=== PATIENT | female | born 1990 | race Caucasian/White ===

== ENCOUNTER 2016-11-22 20:14 | Inpatient (IN) | payer BC ==
[2016-11-22] MEDS ORDERED: RINGERS SOLUTION,LACTATED 1,000 ML IV ONE (22:18)
[2016-11-22] MEDS ORDERED: LIDOCAINE HCL 50 ML VIAL PERI PRN (22:18)
[2016-11-22] MEDS ORDERED: DEXTROSE 5%-LACTATED RINGERS 1,000 ML IV PRN (22:18)
[2016-11-22] MEDS ORDERED: OXYTOCIN/DEXTROSE 5%-WATER 30 UNITS/500 ML BAG IV ONE (22:18)
[2016-11-22] MEDS ORDERED: BUTORPHANOL TARTRATE 2 MG/ML VIAL IV PRN (22:18)
[2016-11-22] MEDS ORDERED: CALCIUM CARBONATE 500 MG TAB.CHEW PO PRN (22:23)
[2016-11-23] MEDS ORDERED: BUPIVACAINE HCL/0.9 % NACL/PF 250 ML EP PRN (05:25)
[2016-11-23] MEDS ORDERED: ONDANSETRON HCL/PF 2 MG/ML VIAL IV PRN (05:25)
[2016-11-23] MEDS ORDERED: NALOXONE HCL 1 MG/1 ML SYRG IV PRN (05:25)
[2016-11-23] MEDS ORDERED: BUPIVACAINE HCL/PF 30 ML VIAL EP ONE (05:25)
--- NOTE | 2016-11-23 06:10 | OR ---
Anesthesia Procedure Note - Anesthesia Procedure Note Date of Service: 11/23/16 Narrative: Vital Signs - Last Taken Temp 36 C L 11/23/16 06:07 Pulse 104 H 11/23/16 06:07 Resp 18 11/23/16 06:07 BP 138/86 11/23/16 06:07 Pulse Ox 100 11/23/16 06:07 11/23/16 06:09 ANESTHESIA PROCEDURE NOTE Date of Procedure: 11/23/2016. Time of procedure: 0545. Performed by: Red Fisher CRNA Cloth Printing Back Tender: None. Preprocedure diagnosis: Active labor. Post procedure diagnosis: Same. Procedure: Insertion of labor epidural. Indications: The patient is a 26 -year-old female in active labor requesting labor epidural for pain management. Findings: See below. Details of the procedure: The patient was placed in a sitting position. DuraPrep as well as Betadine swabs 3 was applied to the patient's back. Patient was then draped in a sterile fashion. Lidocaine 1% was infiltrated to the skin and subcutaneous tissues at the level of the L3 4 interspace. The epidural space was identified using a 18-gauge Tuohy needle with loss-of- resistance technique. Epidural catheter was inserted to a depth of 11 centimeters at skin. Negative test dose was elicited using 3 mL of 1.5% preservative-free lidocaine plus epinephrine 1 200,000. The epidural catheter was then taped and secured in place. A loading dose of 8 mL of 0.25% preservative-free bupivacaine was administered to the epidural catheter after negative aspiration for blood and CSF. EBL: Minimal. Fluids: N/A. Specimen: N/A. Post procedure condition: The patient tolerated the procedure well. No complications were noted. Thank you for this consultation. Red Fisher CRNA
[2016-11-23] MEDS ORDERED: GLYCERIN/WITCH HAZEL LEAF 40 APPL BOX TP PRN (11:34)
[2016-11-23] MEDS ORDERED: SENNOSIDES 8.6 MG TABLET PO PRN (11:34)
[2016-11-23] MEDS ORDERED: BISACODYL 10 MG SUPP.RECT RC PRN (11:34)
[2016-11-23] MEDS ORDERED: HYDROCORTISONE 30 APPL TUBE TP PRN (11:34)
[2016-11-23] MEDS ORDERED: BENZOCAINE/MENTHOL 81 SPRAY CAN TP PRN (11:34)
[2016-11-23] MEDS ORDERED: oxyCODONE HCL/ACETAMINOPHEN 1 TAB TABLET PO PRN (11:34)
[2016-11-23] MEDS ORDERED: OXYTOCIN/DEXTROSE 5%-WATER 30 UNITS/500 ML BAG IV ONE (11:34)
--- NOTE | 2016-11-23 11:37 | OR ---
Operative Report - Dictated Report Narrative: Spontaneous vaginal delivery of viable female in REJI position at 1008 on 11/23/2016 with Apgars 8 and 9, weighing 3042 g. Nuchal cord 3 reduced with delivery of head. Cord clamping delayed 1 minute. Placenta delivered complete, intact, with three vessel cord. AROM was done just prior to delivery - noting light meconium stained fluid. Estimated blood loss: less than 50 ml Lacerations: First-degree left labial laceration repaired with 4-0 Vicryl Rapide. History for MU Definition: * The number of deliveries resulting in a live the patient experienced prior to current hospitalization * The previous delivery of live twins or any live multiple gestation is considered one live event. *If primagravida or nulliparous is documented select zero for the number of previous live births. Live Events: 0
[2016-11-23] MEDS: oxyCODONE HCL/ACETAMINOPHEN 1 TAB TABLET PO PRN ×4 (12:34→21:56)
[2016-11-23] MEDS: IBUPROFEN 800 MG TABLET PO PRN ×2 (12:34→18:56)
[2016-11-23] MEDS: MAGNESIUM OXIDE 400 MG TABLET PO SCH (20:51)
[2016-11-23] MEDS: DOCUSATE SODIUM 100 MG CAPSULE PO SCH (20:52)
[2016-11-24] MEDS: oxyCODONE HCL/ACETAMINOPHEN 1 TAB TABLET PO PRN ×7 (01:03→22:44)
[2016-11-24] MEDS: IBUPROFEN 800 MG TABLET PO PRN ×4 (01:50→19:37)
[2016-11-24] MEDS: DOCUSATE SODIUM 100 MG CAPSULE PO SCH ×3 (07:33→20:22)
[2016-11-24] MEDS: MAGNESIUM OXIDE 400 MG TABLET PO SCH ×2 (08:48→20:22)
--- NOTE | 2016-11-24 09:23 | PN ---
Subjective - Date and Time Seen Date: 11/24/16 Time: 09:22 Objective - Vitals Vitals: Last Vital Signs Temp 36.0 C L 11/24/16 07:45 Pulse 88 11/24/16 07:45 Resp 20 11/24/16 07:45 BP 133/85 11/24/16 07:45 Pulse Ox 98 11/24/16 07:45 Patient denies complaints. Lochia wnl Abdomen - soft, nontender Uterus - firm, at umbilicus - 1 No calf tenderness Impression: day #1 - s/p spontaneous vaginal delivery. Plan: Continue routine care Cauti Physician Documentation - Urinary Catheter Management Urethral ([facility]sey) Date of Insertion: 11/23/16 Time of Insertion: 06:45 Date of Removal: 11/23/16 Time of Removal: 09:45
[2016-11-24] MEDS ORDERED: hydrOXYzine PAMOATE 25 MG CAPSULE PO PRN (12:31)
[2016-11-25] MEDS: oxyCODONE HCL/ACETAMINOPHEN 1 TAB TABLET PO PRN ×2 (01:51→07:34)
[2016-11-25] MEDS: IBUPROFEN 800 MG TABLET PO PRN ×2 (01:58→07:34)
[2016-11-25] MEDS: MAGNESIUM OXIDE 400 MG TABLET PO SCH ×2 (07:33→14:11)
[2016-11-25] MEDS: DOCUSATE SODIUM 100 MG CAPSULE PO SCH ×2 (07:33→14:11)
[2016-11-25 07:52] VITALS: BP 121/76
== END 2016-11-25 12:55 | disposition home or self-care (01) | DRG 775 ==
LOC: OBCLINIC 20:14 → OB 22:11
PROVIDERS: ADMIT Obstetrics & Gynecology; ATTEND Obstetrics & Gynecology
PROC: 10E0XZZ Delivery of Products of Conception, External Approach (ICD-10-PCS; principal; 2016-11-22)
PROC: 0HQ9XZZ Repair Perineum Skin, External Approach (ICD-10-PCS; 2016-11-22)
PROC: 4A1HXCZ Monitoring of Products of Conception, Cardiac Rate, External Approach (ICD-10-PCS; 2016-11-22)
PROC: 10907ZC Drainage of Amniotic Fluid, Therapeutic from Products of Conception, Via Natural or Artificial Opening (ICD-10-PCS; 2016-11-22)
PROC: 3E0S3CZ (ICD-10-PCS; 2016-11-22)
DX: O70.0 First degree perineal laceration during delivery (principal); O69.81X0 Labor and delivery complicated by cord around neck, without compression, not applicable or unspecified; O77.0 Labor and delivery complicated by meconium in amniotic fluid; J45.20 Mild intermittent asthma, uncomplicated; Z37.0 Single live birth; Z3A.41 41 weeks gestation of pregnancy

== ENCOUNTER 2018-11-02 00:06 | Inpatient (IN) ==
[~2018-11-02 00:06] MED LIST: OXYTOCIN/DEXTROSE 5%-WATER 30 UNITS/500 ML BAG IV ONE
[2018-11-02 01:34] LABS: Cocaine Ur Negative (NEGATIVE); Urine Barbiturate Negative (NEGATIVE); Urine Benzodiazepines Negative (NEGATIVE); Urine Opiates Negative (NEGATIVE); Urine PCP Negative (NEGATIVE); Urine THC Negative (NEGATIVE)
[2018-11-02] MEDS ORDERED: CALCIUM CARBONATE 500 MG TAB.CHEW PO PRN (02:19)
[2018-11-02] MEDS ORDERED: ACETAMINOPHEN 325 MG TABLET PO ONE (03:47)
[2018-11-02] MEDS: RINGER'S SOLUTION,LACTATED 1,000 ML IV ONE ×2 (07:44→08:49)
[2018-11-02] MEDS ORDERED: NALOXONE HCL 1 MG/1 ML SYRG IV PRN (07:47)
[2018-11-02] MEDS ORDERED: BUPIVACAINE HCL/0.9 % NACL/PF 250 ML EP PRN (07:47)
[2018-11-02] MEDS ORDERED: fentaNYL CITRATE/PF 50 MCG/ML AMPUL IT SCH (08:00)
[2018-11-02] MEDS ORDERED: LIDOCAINE HCL/EPINEPHRINE 20 ML VIAL ONE (08:26)
--- NOTE | 2018-11-02 09:21 | PN ---
Progess Note - Interim Date: 11/02/18 Time: 09:17 Narrative: 11/02/18 09:17 Patient comfortable with epidural Vital signs stable. Pitocin at 9 mu/min. FHT: 140 baseline, reassuring Contractions q 2-3 min Cervix: 4/50/-2, AROM-clear Impression: Intrauterine at 39 4/7 weeks induction of labor due to living far from the hospital Plan: Continue present plan
--- NOTE | 2018-11-02 09:39 | ANES ---
Anesthesia Pre Procedure Eval Vitals/Labs: Last Vital Signs Temp 36.8 C 11/02/18 02:00 Pulse 87 11/02/18 02:00 Resp 18 11/02/18 02:00 BP 128/72 11/02/18 02:00 Pulse Ox 98 11/02/18 02:00 HOME MEDICATIONS [id number] 400 mcg-om3 35 mg-dha 25 mg-epa 5 mg-fish oil chewable tablet 2 tab PO DAILY tab 04/14/18 [Last Taken 06/08/18] ranitidine 150 mg tablet 150 mg PO BID 07/02/18 [Last Taken Unknown] magnesium 200 mg tablet 800 mg PO BID tab 08/31/18 [Last Taken Unknown] breast pump See Dose Instructions .ROUTE .MEDSUPPLY #1 ea 10/08/18 [Last Taken Unknown] Allergies/Adverse Reactions: Allergies Allergy/AdvReac Type Severity Reaction Status Date / Time latex Allergy rash, Verified 11/02/18 00:18 blisters ondansetron [From Zofran] AdvReac headaches, Verified 11/02/18 00:18 vomitting - Planned Procedure Planned Procedure: ELECTIVE INDUCTION 39 WEEKS, 4 DAYS Medication List Reviewed:: Yes Allergies Verified: Yes Medical History (Last Reviewed 11/02/18 @ 09:38 by Romario Hernandez CRNA) Anxiety Onset Date: Unknown Dysmenorrhea Onset Date: 07/14/02 Have always had painful periods, was put on BC in 2003 to help with heavy bleeding and cramping. Ovarian cyst Onset Date: 11/04/11 Multiple cysts surrounding rt ovary. Cysts burst and was put through progesterone challenge at that time for 10 days Panic disorder Onset Date: 09/25/09 Atenalol was prescribed prn which usually was taken 3-5 times/month and hasn't been used since trying to get . Asthma Onset Date: 08/25/92 albuterol inh used prn 5m before heavy exercise or when feeling chest tightness., no hospitalizations Post-dates Onset Date: 11/22/16 Surgical History (Last Reviewed 11/02/18 @ 09:38 by Romario Hernandez CRNA) No pertinent past surgical history Family History (Last Reviewed 11/02/18 @ 09:38 by Romario Hernandez CRNA) Mother Depression IBS (irritable bowel syndrome) Crohn's disease Father Bladder cancer Brother Asthma Grandfather Asthma Maternal Aunt Breast cancer Lupus Grandmother CVA (cerebral vascular accident) maternal Diabetes Kidney disease Grandmother No problems noted. Other Cancer - Family Anesthesia History Family History:: no untoward family reactions to anesthesia - Airway/Neck/Teeth Within Normal Limits:: Yes Teeth Condition: intact Neck Exam: full range of motion Mallampatti Score: 2 Thyromental (T-M) distance: > 6 cm Mandibulo Hyoid distance: > 3 cm - Respiratory Respiratory Physical: lungs clear Sleep Apnea currently treated: No Sleep Apnea by current assessment: No - Cardiovascular Tolerate Activity: Good Heart Sounds: S1 & S2, Regular - Anesthesia Assessment and Plan ASA Class: PS, II, E Anesthesia Type Plan: Epidural Planned difficult intubation/equipment available: No
--- NOTE | 2018-11-02 09:40 | ANES ---
Post Anesthesia Discharge - Transfer of Care Transfer of Care handoff given to nurse: Yes - Anesthesia Post Op Note Anesthesia Post Op Note: Care transferred to OB RN
--- NOTE | 2018-11-02 09:40 | ANES ---
Post Anesthesia Assessment - Vital Signs Vitals: Last Vital Signs Temp 36.8 C 11/02/18 02:00 Pulse 87 11/02/18 02:00 Resp 18 11/02/18 02:00 BP 128/72 11/02/18 02:00 Pulse Ox 98 11/02/18 02:00 Airway Patency: Normal - Mental Status Level Of Consciousness: Awake - Pain Level Pain Score: 2 - N/V Assessment Nausea/Vomiting Presence: None Dehydration:: No
--- NOTE | 2018-11-02 12:10 | ANES ---
Anesthesia Procedure Note Procedure Note: ANESTHESIA PROCEDURE NOTE Date of Procedure: 11/02/2018 Time of procedure: . Performed by: Dionte Hernandez CRNA Charging Plug Placer: None. Preprocedure diagnosis: Active labor. Post procedure diagnosis: Same. Procedure: Insertion of labor epidural. Indications: The patient is a 28-year-old multigravid female in active labor requesting labor epidural for pain management. Findings: See below. Details of the procedure: The patient was placed in a sitting position. Back was prepped with DuraPrep. Patient was then draped in a sterile fashion. Lidocaine 1% was infiltrated to the skin and subcutaneous tissues at the level of the L3 4 interspace. The epidural space was identified using a 18-gauge Tuohy needle with [id number] technique. 20 mcg fentanyl was given intrathecally using a 27 ga. spinal needle. Epidural catheter was inserted without difficulty. Negative test dose was elicited using 5 mL of 1.5% preservative-free lidocaine plus epinephrine 1 200,000. The epidural catheter was then taped and secured in place. EBL: Minimal. Fluids: N/A. Specimen: N/A. Post procedure condition: The patient tolerated the procedure well. No complications were noted. Thank you for this consultation. Santiago CRNA
[2018-11-02] MEDS ORDERED: HYDROCORTISONE 30 APPL TUBE TP PRN (16:18)
[2018-11-02] MEDS ORDERED: SENNOSIDES 8.6 MG TABLET PO PRN (16:18)
[2018-11-02] MEDS ORDERED: OXYTOCIN/DEXTROSE 5%-WATER 30 UNITS/500 ML BAG IV ONE (16:18)
[2018-11-02] MEDS ORDERED: BISACODYL 10 MG SUPP.RECT RC PRN (16:18)
[2018-11-02] MEDS ORDERED: BENZOCAINE/MENTHOL 81 SPRAY CAN TP PRN (16:18)
[2018-11-02] MEDS ORDERED: GLYCERIN/WITCH HAZEL LEAF 40 APPL BOX TP PRN (16:18)
[2018-11-02] MEDS ORDERED: oxyCODONE HCL/ACETAMINOPHEN 1 TAB TABLET PO PRN (16:18)
--- NOTE | 2018-11-02 16:22 | OR ---
Operative Report - Dictated Report Narrative: Spontaneous vaginal delivery of a vigorously crying viable female at 1556 on 11/02/2018 with Apgars 9 and 9, weighing 3406 g in REJI position. Cord clamping delayed approximately 1 minute Placenta delivered complete, intact, with three vessel cord Estimated blood loss: less than 50 ml Anesthesia: epidural Lacerations: Cllitoral Sheppard and right labial abrasion-no repair needed. History for Definition: * The number of deliveries resulting in a live the patient experienced prior to current hospitalization * The previous delivery of live twins or any live multiple gestation is considered one live event. *If primagravida or nulliparous is documented select zero for the number of previous live births. Live Events: 1
[2018-11-02] MEDS: IBUPROFEN 800 MG TABLET PO PRN (19:03)
[2018-11-02] MEDS: DOCUSATE SODIUM 100 MG CAPSULE PO SCH (21:06)
[2018-11-03] MEDS: IBUPROFEN 800 MG TABLET PO PRN ×3 (01:28→17:31)
--- NOTE | 2018-11-03 05:12 | PN ---
Subjective - Date and Time Seen Date: 11/03/18 Time: 05:12 Objective - Vitals Vitals: Last Vital Signs Temp 36.8 C 11/03/18 00:46 Pulse 91 11/03/18 00:46 Resp 18 11/03/18 00:46 BP 124/74 11/03/18 00:46 Pulse Ox 97 11/03/18 00:46 Complains of intense postdelivery contractions Lochia wnl Abdomen - soft, nontender Uterus - firm, at umbilicus - 1 No calf tenderness Impression: day #1 - s/p spontaneous vaginal delivery. Plan: Continue routine care Cauti Physician Documentation - Urinary Catheter Management Urethral ([facility]sey) Date of Insertion: 11/02/18 Time of Insertion: 09:30 Date of Removal: 11/02/18 Time of Removal: 15:23
[2018-11-03] MEDS: MAGNESIUM OXIDE 400 MG TABLET PO SCH (08:43)
[2018-11-03] MEDS: PRENATAL VITS96/IRON FUM/FOLIC 1 TAB TABLET PO SCH (08:43)
[2018-11-03] MEDS: DOCUSATE SODIUM 100 MG CAPSULE PO SCH ×2 (08:43→20:31)
[2018-11-03] MEDS: oxyCODONE HCL/ACETAMINOPHEN 1 TAB TABLET PO PRN ×4 (09:42→20:31)
[2018-11-04] MEDS: IBUPROFEN 800 MG TABLET PO PRN ×2 (06:38→12:37)
[2018-11-04 07:24] VITALS: BP 126/86
[2018-11-04] MEDS: DOCUSATE SODIUM 100 MG CAPSULE PO SCH (09:47)
[2018-11-04] MEDS: PRENATAL VITS96/IRON FUM/FOLIC 1 TAB TABLET PO SCH (09:47)
[2018-11-04] MEDS: MAGNESIUM OXIDE 400 MG TABLET PO SCH (09:47)
--- NOTE | 2018-11-04 14:21 | PN ---
Subjective - Date and Time Seen Date: 11/04/18 Time: 14:21 Objective - Vitals Vitals: Last Vital Signs Temp 36.4 C 11/04/18 07:00 Pulse 75 11/04/18 07:00 Resp 16 11/04/18 07:00 BP 126/86 11/04/18 07:00 Pulse Ox 98 11/04/18 07:00 Patient denies complaints. Breast-feeding well Lochia wnl Abdomen - soft, nontender Uterus - firm, at umbilicus - 2 No calf tenderness Impression: day #2 - s/p spontaneous vaginal delivery. Plan: Routine discharge instructions Cauti Physician Documentation - Urinary Catheter Management Urethral (Massey) Date of Insertion: 11/02/18 Time of Insertion: 09:30 Date of Removal: 11/02/18 Time of Removal: 15:23
--- NOTE | 2018-11-10 09:17 | HP ---
Chief Complaint - Chief Complaint Date of Service: 11/02/18 Time of Service: 06:00 Chief Complaint: induction of labor History of Present Illness: 28 yo at 39 4/7 weeks presents for elective induction of labor due to a dvanced dilation and lives far from hospital. This complicated by: Asthma -exercise induced. Migraines - magnesium 800mg/d Anxiety/panic d/o - stable off meds RH positive Rubella immune GBS Negative Medical History (Last Reviewed 11/10/18 @ 09:13 by Mikie Smith DO) Anxiety Onset Date: Unknown Dysmenorrhea Onset Date: 07/14/02 Have always had painful periods, was put on BC in 2003 to help with heavy bleeding and cramping. Ovarian cyst Onset Date: 11/04/11 Multiple cysts surrounding rt ovary. Cysts burst and was put through progesterone challenge at that time for 10 days Panic disorder Onset Date: 09/25/09 Atenalol was prescribed prn which usually was taken 3-5 times/month and hasn't been used since trying to get . Asthma Onset Date: 08/25/92 albuterol inh used prn 5m before heavy exercise or when feeling chest tightness., no hospitalizations Post-dates Onset Date: 11/22/16 Surgical History: Surgical History (Last Reviewed 11/10/18 @ 09:13 by Mikie Smith DO) No pertinent past surgical history Family History: Family History (Last Reviewed 11/10/18 @ 09:13 by Mikie Smith DO) Mother Depression IBS (irritable bowel syndrome) Crohn's disease Father Bladder cancer Brother Asthma Grandfather Asthma Maternal Aunt Breast cancer Lupus Grandmother CVA (cerebral vascular accident) maternal Diabetes Kidney disease Grandmother No problems noted. Other Cancer Social History: Preferred Language Taiwanese Do you have any caodaism or No cultural preference? Smoking Status Never smoker (Last Updated 10/26/18 @ 10:11 by Mikie Smith DO) No Social History Section defined Review Of Systems (GEN) - Review of Systems Generalized/Overall Review: Present: No Symptoms Reported EENTM: Present: No Symptoms Reported Cardiac: Present: No Symptoms Reported Abdominal: Present: No Symptoms Reported Genitourinary: Present: No Symptoms Reported Musculoskeletal: Present: No Symptoms Reported Neurological: Present: No Symptoms Reported Skin: Present: No Symptoms Reported Endocrine: Present: No Symptoms Reported Immunizations: IMMUNIZATION HX Immunizations Up to Date Yes History of Influenza Vaccine Yes Hx Pneumococcal Vaccination No Allergies/Adverse Reactions: Allergies Allergy/AdvReac Type Severity Reaction Status Date / Time latex Allergy rash, Verified 11/02/18 00:18 blisters ondansetron [From Zofran] AdvReac headaches, Verified 11/02/18 00:18 vomitting Home Medications: HOME MEDICATIONS [id number] 400 mcg-om3 35 mg-dha 25 mg-epa 5 mg-fish oil chewable tablet 2 tab PO DAILY tab 04/14/18 [Last Taken 06/08/18] magnesium 200 mg tablet 800 mg PO BID tab 08/31/18 [Last Taken Unknown] breast pump See Dose Instructions .ROUTE .MEDSUPPLY #1 ea 10/08/18 [Last Taken Unknown] Ibuprofen [Motrin] 200 - 800 mg PO Q6H PRN #100 tab 11/04/18 [Last Taken Unknown] Exam - Exam Vital Signs: Vital Signs - Last Taken Temp 36.4 C 11/04/18 07:00 Pulse 75 11/04/18 07:00 Resp 16 11/04/18 07:00 BP 126/86 11/04/18 07:00 Pulse Ox 98 11/04/18 07:00 Constitutional: Present: Alert, Oriented x3, Cooperative, No distress ENT Exam: Present: hearing grossly normal Breasts: Present: Exam deferred Respiratory: Present: lungs clear, no respiratory distress Cardiovascular/Chest: Present: normal peripheral pulses, regular rate, rhythm Abdomen: Present: Normal bowel sounds, soft, nontender, no rebound tenderness, other - gravid /Rectal: Present: Other - cervix 2/50/-2 Extremity: Present: non-tender, no pedal edema, no calf tenderness Skin Exam: Present: normal color, warm/dry, no cyanosis Neurologic: Present: alert, normal mood/affect, oriented x 3. Absent: dizzy/light-headedness Appearance: Present: appropriate appearance, appropriate insight Eye contact: Present: cooperative, good eye contact Thoughts: Present: normal thought pattern Diagnostic Studies: Laboratory Results Urine Opiates Screen Negative (NEGATIVE) 11/02/18 00:00 Barbiturate Screen Negative (NEGATIVE) 11/02/18 00:00 Ur Phencyclidine Scrn Negative (NEGATIVE) 11/02/18 00:00 Urine Amphetamine Negative (NEGATIVE) 11/02/18 00:00 U Benzodiazepines Scrn Negative (NEGATIVE) 11/02/18 00:00 Urine Cocaine Screen Negative (NEGATIVE) 11/02/18 00:00 Urine Marijuana (THC) Negative (NEGATIVE) 11/02/18 00:00 Assessment/Plan - Assessment/Plan (1) Encounter for induction of labor Assessment: Admit for pitocn induction of labor. Epidural PRN. Problem: Acute (2) Asthma Problem: Chronic Qualifiers: Asthma severity: mild Asthma persistence: intermittent Asthma complication type: uncomplicated Qualified Code(s): J45.20 - Mild intermittent asthma, uncomplicated (3) Anxiety Problem: Chronic
== END 2018-11-04 13:40 | disposition home or self-care (01) | DRG 807 ==
LOC: OB 00:06
PROVIDERS: ADMIT Obstetrics & Gynecology; ATTEND Obstetrics & Gynecology
CPT/HCPCS: 59025; 80307

== ENCOUNTER 2020-01-20 14:36 | Inpatient (IN) ==
[2020-01-20] MEDS ORDERED: DEXTROSE 5%-LACTATED RINGERS 1,000 ML IV PRN (14:47)
[2020-01-20] MEDS ORDERED: RINGER'S SOLUTION,LACTATED 1,000 ML IV ONE (14:47)
[2020-01-20] MEDS ORDERED: OXYTOCIN/DEXTROSE 5%-WATER 30 UNITS/500 ML BAG IV ONE (14:47)
[2020-01-20] MEDS ORDERED: NALOXONE HCL 1 MG/1 ML SYRG IV PRN (17:48)
[2020-01-20] MEDS ORDERED: BUPIVACAINE HCL/0.9 % NACL/PF 250 ML EP PRN (17:48)
[2020-01-20] MEDS ORDERED: ONDANSETRON HCL/PF 2 MG/ML VIAL IV PRN (17:48)
[2020-01-20] MEDS ORDERED: fentaNYL CITRATE/PF 50 MCG/ML AMPUL IT SCH (18:00)
--- NOTE | 2020-01-20 18:26 | HP ---
Chief Complaint - Chief Complaint Date of Service: 01/20/20 Time of Service: 18:20 Chief Complaint: elective induction of labor History of Present Illness: 29 yo at 39 4/7 weeks admitted for elective induction of labor due to being multigravid living >1 hour from hospital. This complicated by anemia, asthma, and anxiety. Rh positive Rubella immune GBS negative Medical History (Last Reviewed 01/20/20 @ 18:21 by Mikie Smith DO) Anemia Onset Date: 10/25/19 w/ Anxiety Onset Date: Unknown Dysmenorrhea Onset Date: 07/14/02 Have always had painful periods, was put on BC in 2003 to help with heavy bleeding and cramping. Ovarian cyst Onset Date: 11/04/11 Multiple cysts surrounding rt ovary. Cysts burst and was put through progesterone challenge at that time for 10 days Panic disorder Onset Date: 09/25/09 Atenalol was prescribed prn which usually was taken 3-5 times/month and hasn't been used since trying to get . Asthma Onset Date: 08/25/92 albuterol inh used prn 5m before heavy exercise or when feeling chest tightness., no hospitalizations Post-dates Onset Date: 11/22/16 Surgical History: Surgical History (Last Reviewed 01/20/20 @ 18:21 by Mikie Smith DO) No pertinent past surgical history Family History: Family History (Last Reviewed 01/20/20 @ 18:22 by Mikie Smith DO) Mother Depression IBS (irritable bowel syndrome) Crohn's disease Father Bladder cancer Brother Asthma Grandfather Asthma Maternal Aunt Breast cancer Lupus Grandmother CVA (cerebral vascular accident) maternal Diabetes Kidney disease Grandmother No problems noted. Daughter Cataracts, bilateral congenital Other Cancer Social History: (Last Reviewed 01/20/20 @ 18:22 by Mikie Smith DO) Social History: adopted: No detention: No Marital status: household members: spouse, children number of children: 2 current occupational status: employed current occupation: collections assistant current occupational exposures/hazards: No Highest education level completed: Associate degree: academi Sexually Active: Yes Service: No Tobacco: Smoking Status: Never smoker Alcohol: alcohol intake: former Substance Use: substance use type: does not use Dietary Habits: caffeine: No Exercise: frequency: does not exercise Katja/Synagogue: agree to transfusion: Yes Personal Safety: victim of physical abuse: No victim of emotional abuse: No victim of sexual abuse: No Review Of Systems (GEN) - Review of Systems Generalized/Overall Review: Present: No Symptoms Reported EENTM: Present: No Symptoms Reported Respiratory: Present: No Symptoms Reported Cardiac: Present: No Symptoms Reported Abdominal: Present: No Symptoms Reported Genitourinary: Present: No Symptoms Reported Musculoskeletal: Present: No Symptoms Reported Neurological: Present: No Symptoms Reported Skin: Present: No Symptoms Reported Endocrine: Present: No Symptoms Reported Immunizations: IMMUNIZATION HX Immunizations Up to Date Yes History of Influenza Vaccine Yes Hx Pneumococcal Vaccination No Allergies/Adverse Reactions: Allergies Allergy/AdvReac Type Severity Reaction Status Date / Time latex Allergy rash, Verified 01/18/20 09:11 blisters ondansetron [From Zofran] AdvReac headaches, Verified 01/18/20 09:11 vomitting Home Medications: HOME MEDICATIONS famotidine 20 mg tablet 20 mg PO DAILY #30 tab 12/14/19 [Last Taken Unknown] Vits96/Iron Fum/Folic [ S] 1 tab PO DAILY 01/20/20 [Last Taken Unknown] Exam - Exam Vital Signs: Vital Signs - Last Taken Temp 36.2 C 01/20/20 15:00 Pulse 79 01/20/20 15:00 Resp 18 01/20/20 15:00 BP 133/81 01/20/20 15:00 Pulse Ox 99 01/20/20 15:00 Constitutional: Present: Alert, Oriented x3, Cooperative, No distress ENT Exam: Present: hearing grossly normal Neck: Absent: thyromegaly Respiratory: Present: lungs clear, no respiratory distress Cardiovascular/Chest: Present: regular rate, rhythm, no edema Abdomen: Present: soft, no rebound tenderness, other - gravid /Rectal: Present: Other - Cervix 2-3/50/-2 Extremity: Present: no pedal edema, no calf tenderness Skin Exam: Present: normal color, warm/dry, no cyanosis Neurologic: Present: alert, normal mood/affect, oriented x 3 Appearance: Present: appropriate appearance, appropriate insight Eye contact: Present: cooperative, good eye contact Thoughts: Present: normal thought pattern Assessment/Plan - Assessment/Plan (1) Encounter for induction of labor Assessment: Admit for pitocin induction of labor. Epidural PRN. Problem: Acute (2) Asthma Problem: Chronic Qualifiers: Asthma severity: mild Asthma persistence: intermittent Asthma complication type: uncomplicated Qualified Code(s): J45.20 - Mild intermittent asthma, uncomplicated (3) Anxiety Problem: Chronic (4) Anemia Problem: Acute Qualifiers: Anemia type: iron deficiency Iron deficiency anemia type: inadequate dietary iron intake Qualified Code(s): D50.8 - Other iron deficiency anemias
--- NOTE | 2020-01-20 18:36 | ANES ---
Anesthesia Pre Procedure Eval Vitals/Labs: Last Vital Signs Temp 36.2 C 01/20/20 15:00 Pulse 79 01/20/20 15:00 Resp 18 01/20/20 15:00 BP 133/81 01/20/20 15:00 Pulse Ox 99 01/20/20 15:00 HOME MEDICATIONS famotidine 20 mg tablet 20 mg PO DAILY #30 tab 12/14/19 [Last Taken Unknown] Vits96/Iron Fum/Folic [ S] 1 tab PO DAILY 01/20/20 [Last Taken Unknown] Allergies/Adverse Reactions: Allergies Allergy/AdvReac Type Severity Reaction Status Date / Time latex Allergy rash, Verified 01/18/20 09:11 blisters ondansetron [From Zofran] AdvReac headaches, Verified 01/18/20 09:11 vomitting - Planned Procedure Planned Procedure: elective induction Medication List Reviewed:: Yes Allergies Verified: Yes Medical History (Last Reviewed 01/20/20 @ 18:35 by Romario Hernandez CRNA) Anemia Onset Date: 10/25/19 w/ Anxiety Onset Date: Unknown Dysmenorrhea Onset Date: 07/14/02 Have always had painful periods, was put on BC in 2003 to help with heavy bleeding and cramping. Ovarian cyst Onset Date: 11/04/11 Multiple cysts surrounding rt ovary. Cysts burst and was put through progesterone challenge at that time for 10 days Panic disorder Onset Date: 09/25/09 Atenalol was prescribed prn which usually was taken 3-5 times/month and hasn't been used since trying to get . Asthma Onset Date: 08/25/92 albuterol inh used prn 5m before heavy exercise or when feeling chest tightness., no hospitalizations Post-dates Onset Date: 11/22/16 Surgical History (Last Reviewed 01/20/20 @ 18:35 by Romario Hernandez CRNA) No pertinent past surgical history Family History (Last Reviewed 01/20/20 @ 18:35 by Romario Hernandez CRNA) Mother Depression IBS (irritable bowel syndrome) Crohn's disease Father Bladder cancer Brother Asthma Grandfather Asthma Maternal Aunt Breast cancer Lupus Grandmother CVA (cerebral vascular accident) maternal Diabetes Kidney disease Grandmother No problems noted. Daughter Cataracts, bilateral congenital Other Cancer - Family Anesthesia History Family History:: no untoward family reactions to anesthesia - Airway/Neck/Teeth Within Normal Limits:: Yes Teeth Condition: intact Neck Exam: full range of motion - Respiratory Smoking Status: Never smoker Sleep Apnea currently treated: No Sleep Apnea by current assessment: No - Cardiovascular Tolerate Activity: Good Heart Sounds: S1 & S2, Regular - Gastrointestinal NPO since: 0800 - Anesthesia Assessment and Plan ASA Class: PS, II, E Anesthesia Type Plan: Epidural Planned difficult intubation/equipment available: No
--- NOTE | 2020-01-20 18:37 | ANES ---
Post Anesthesia Assessment - Vital Signs Vitals: Last Vital Signs Temp 36.2 C 01/20/20 15:00 Pulse 79 01/20/20 15:00 Resp 18 01/20/20 15:00 BP 133/81 01/20/20 15:00 Pulse Ox 99 01/20/20 15:00 Airway Patency: Normal - Mental Status Level Of Consciousness: Awake - Pain Level Pain Score: 2 - N/V Assessment Nausea/Vomiting Presence: None Dehydration:: No
--- NOTE | 2020-01-20 18:37 | ANES ---
Post Anesthesia Discharge - Transfer of Care Transfer of Care handoff given to nurse: Yes - Anesthesia Post Op Note Anesthesia Post Op Note: Care transferred to OB RN
--- NOTE | 2020-01-20 18:38 | ANES ---
Anesthesia Procedure Note Procedure Note: ANESTHESIA PROCEDURE NOTE Date of Procedure: 01/20/2020 Time of procedure: 1809. Performed by: Dionte Hernandez CRNA Shredded Filler Machine Wrapper Layer: None. Preprocedure diagnosis: Active labor. Post procedure diagnosis: Same. Procedure: Insertion of labor epidural. Indications: The patient is a 29-year-old multigravida female in active labor requesting labor epidural for pain management. Findings: See below. Details of the procedure: The patient was placed in a sitting position. Back was prepped with DuraPrep. Patient was then draped in a sterile fashion. Lidocaine 1% was infiltrated to the skin and subcutaneous tissues at the level of the L3 4 interspace. The epidural space was identified using a 18-gauge Tuohy needle with [id number] technique. 20 mcg fentanyl was given intrathecally using a 27 ga. spinal needle. Epidural catheter was inserted without difficulty. Negative test dose was elicited using 5 mL of 1.5% preservative-free lidocaine plus epinephrine 1 200,000. The epidural catheter was then taped and secured in place. EBL: Minimal. Fluids: N/A. Specimen: N/A. Post procedure condition: The patient tolerated the procedure well. No complications were noted. Thank you for this consultation. Santiago CRNA
--- NOTE | 2020-01-20 18:47 | PN ---
Progess Note - Interim Date: 01/20/20 Time: 18:44 Narrative: 01/20/20 18:44 Patient comfortable with epidural. Patient had hypotensive episode after epidural placement but has resolved and feeling much better. Vital signs stable. Pitocin at 4 mu/min. FHT: 140 baseline, reassuring contractions q 2-3 min Cervix: 4/50/-2, AROM-clear Impression: Intrauterine at 39-4/7 weeks. Elective induction of labor due to living greater than 1 hour from the hospital. Plan: Continue present plan
[2020-01-20] MEDS: CALCIUM CARBONATE 500 MG TAB.CHEW PO PRN (21:31)
[2020-01-21] MEDS: CALCIUM CARBONATE 500 MG TAB.CHEW PO PRN (00:14)
--- NOTE | 2020-01-21 00:59 | PN ---
Progess Note - Interim Date: 01/20/20 Time: 11:45 Narrative: 01/21/20 00:57 Patient comfortable with epidural Vital signs stable. Pitocin at 8 mu/min. FHT: 140 baseline, reassuring contractions q 2-3 min Cervix: 8/80/-2 Impression: Intrauterine at 39-5/7 weeks elective induction of labor Plan: Anticipate normal spontaneous vaginal delivery soon
[2020-01-21] MEDS ORDERED: GLYCERIN/WITCH HAZEL LEAF 40 APPL BOX TP PRN (02:55)
[2020-01-21] MEDS ORDERED: HYDROCORTISONE 30 APPL TUBE TP PRN (02:55)
[2020-01-21] MEDS ORDERED: BISACODYL 10 MG SUPP.RECT RC PRN (02:55)
[2020-01-21] MEDS ORDERED: BENZOCAINE/MENTHOL 81 SPRAY CAN TP PRN (02:55)
[2020-01-21] MEDS ORDERED: IBUPROFEN 800 MG TABLET PO PRN (02:55)
[2020-01-21] MEDS ORDERED: SENNOSIDES 8.6 MG TABLET PO PRN (02:55)
[2020-01-21] MEDS ORDERED: OXYTOCIN/DEXTROSE 5%-WATER 30 UNITS/500 ML BAG IV ONE (02:55)
--- NOTE | 2020-01-21 02:59 | OR ---
Operative Report - Dictated Report Narrative: Spontaneous vaginal delivery of viable male at 0227 on 01/21/2020 with Apgars 7 and 8, weighing 3711 g in YAIMA position with right hand presentation and tight nuchal cord x1. Cord clamping delayed approximately 1 minute Placenta delivered complete, intact, with three vessel cord Estimated blood loss: Less than 50 ml Anesthesia: Epidural Lacerations: None History for MU History for MU Definition: * The number of deliveries resulting in a live the patient experienced prior to current hospitalization * The previous delivery of live twins or any live multiple gestation is consi dered one live event. *If primagravida or nulliparous is documented select zero for the number of previous live births. Live Events: Live Events: 2
[2020-01-21] MEDS: oxyCODONE HCL/ACETAMINOPHEN 1 TAB TABLET PO PRN ×5 (07:24→21:47)
[2020-01-21] MEDS: IBUPROFEN 800 MG TABLET PO PRN ×3 (10:06→21:46)
[2020-01-21] MEDS: PRENATAL VITS96/IRON FUM/FOLIC 1 TAB TABLET PO SCH (10:07)
[2020-01-21] MEDS: DOCUSATE SODIUM 100 MG CAPSULE PO SCH ×2 (10:07→21:46)
[2020-01-21] MEDS: FAMOTIDINE 20 MG TABLET PO SCH (10:07)
[2020-01-22] MEDS: oxyCODONE HCL/ACETAMINOPHEN 1 TAB TABLET PO PRN ×7 (00:51→21:42)
[2020-01-22] MEDS: IBUPROFEN 800 MG TABLET PO PRN ×3 (04:01→17:59)
[2020-01-22] MEDS: FAMOTIDINE 20 MG TABLET PO SCH (08:41)
[2020-01-22] MEDS: PRENATAL VITS96/IRON FUM/FOLIC 1 TAB TABLET PO SCH (08:44)
[2020-01-22] MEDS: DOCUSATE SODIUM 100 MG CAPSULE PO SCH ×2 (08:44→21:43)
--- NOTE | 2020-01-22 11:53 | PN ---
Subjective - Date and Time Seen Date: 01/22/20 Time: 11:50 Objective - Vitals Vitals: Last Vital Signs Temp 36.5 C 01/22/20 08:50 Pulse 75 01/22/20 08:50 Resp 20 01/22/20 08:50 BP 121/75 01/22/20 08:50 Pulse Ox 99 01/22/20 08:50 Patient with minimal bleeding and moderate cramping controlled with nonsteroidals. Mother has been having some difficulty breast-feeding the baby due to his ankyloglossia. Lochia wnl abdomen - soft, nontender Uterus -firm, at umbilicus - 1 no calf tenderness Impression: day #1 - s/p spontaneous vaginal delivery. Plan: Continue routine care. Cauti Physician Documentation - Urinary Catheter Management Urethral ([facility]) Date of Insertion: 01/20/20 Time of Insertion: 19:00 Assessment/Plan - Problems/Diagnosis (1) Encounter for induction of labor Problem: Acute (2) Asthma Problem: Chronic Qualifiers: Asthma severity: mild Asthma persistence: intermittent Asthma complication type: uncomplicated Qualified Code(s): J45.20 - Mild intermittent asthma, uncomplicated (3) Anxiety Problem: Chronic (4) Anemia Problem: Acute Qualifiers: Anemia type: iron deficiency Iron deficiency anemia type: inadequate dietary iron intake Qualified Code(s): D50.8 - Other iron deficiency anemias
[2020-01-23] MEDS: IBUPROFEN 800 MG TABLET PO PRN (00:44)
[2020-01-23] MEDS: oxyCODONE HCL/ACETAMINOPHEN 1 TAB TABLET PO PRN ×2 (00:45→03:50)
[2020-01-23 07:28] VITALS: BP 119/65
[2020-01-23] MEDS: PRENATAL VITS96/IRON FUM/FOLIC 1 TAB TABLET PO SCH (08:09)
[2020-01-23] MEDS: FAMOTIDINE 20 MG TABLET PO SCH (08:09)
[2020-01-23] MEDS: DOCUSATE SODIUM 100 MG CAPSULE PO SCH (08:09)
--- NOTE | 2020-01-23 12:24 | PN ---
Subjective - Date and Time Seen Date: 01/23/20 Time: 12:23 Objective - Vitals Vitals: Last Vital Signs Temp 36.6 C 01/23/20 07:24 Pulse 68 01/23/20 07:24 Resp 18 01/23/20 07:24 BP 119/65 01/23/20 07:24 Pulse Ox 96 01/23/20 07:24 Patient denies complaints. Breast-feeding well Lochia wnl abdomen - soft, nontender Uterus -firm, at umbilicus - 2 no calf tenderness Impression: day #2 - s/p spontaneous vaginal delivery. Plan: Routine discharge instructions Cauti Physician Documentation - Urinary Catheter Management Urethral ([facility]) Date of Insertion: 01/20/20 Time of Insertion: 19:00 Assessment/Plan - Problems/Diagnosis (1) Encounter for induction of labor Problem: Acute (2) Asthma Problem: Chronic Qualifiers: Asthma severity: mild Asthma persistence: intermittent Asthma complication type: uncomplicated Qualified Code(s): J45.20 - Mild intermittent asthma, uncomplicated (3) Anxiety Problem: Chronic (4) Anemia Problem: Acute Qualifiers: Anemia type: iron deficiency Iron deficiency anemia type: inadequate dietary iron intake Qualified Code(s): D50.8 - Other iron deficiency anemias
== END 2020-01-23 12:50 | disposition home or self-care (01) | DRG 807 ==
LOC: OB 14:36
PROVIDERS: ADMIT Obstetrics & Gynecology; ATTEND Obstetrics & Gynecology
CPT/HCPCS: 59025